=== PATIENT | male | born 1965 | race Caucasian/White ===

== ENCOUNTER → 2016-12-20 | Outpatient (CLI) | payer MEDICARE, MEDICAID ==
[2016-12-20 13:29] LABS: LYMPH # 2.9 K/mm3 (0.7-4.5); LYMPH % 25.5 % (10-50)
[2016-12-20 14:31] LABS: HEMOGLOBIN 16.3 g/dL (14.1-18.0)
[2016-12-20 17:56] LABS: BUN 18 mg/dL (7-18)
[2016-12-20 18:40] LABS: GFR (ESTIMATED) 79 ML/MIN (>60)
== END ==
LOC: LAB 12:21
PROVIDERS: Internal Medicine Adolescent Medicine
DX: E78.5 Hyperlipidemia, unspecified (principal); E11.9 Type 2 diabetes mellitus without complications; G63 Polyneuropathy in diseases classified elsewhere